=== PATIENT | male | born 1950 | race Caucasian/White ===

== ENCOUNTER 2022-04-25 12:21 | Emergency (ER) | payer OTHER, MEDICAID ==
[~2022-04-25] VITALS: Ht 170.2 cm; Wt 59.4 kg
[2022-04-25 12:23] VITALS: BP 127/91
--- NOTE | 2022-04-25 12:36 | NUR ---
PT AMB WITH SENIOR LEAD [employer] DEVELOPER TO BED 11.
--- NOTE | 2022-04-25 12:40 | NUR ---
DR. OSEGUERA EVALUATING PATIENT AT BEDSIDE.
--- NOTE | 2022-04-25 12:45 | NUR ---
71/M BIB CAREGIVER FROM [facility] C/O NOSE LAC S/P FALL TODAY. BLEEDING CONTROLLED AT THIS TIME. DENIES LOC. PMH: SEVERE INTELLECTUAL DISABILITY, HYPOTHYROID, HTN
[2022-04-25] MEDS ORDERED: LIDOCAINE 1% 500 MG/ 50 ML VIAL INJ ONE (13:45)
[2022-04-25] MEDS ORDERED: LIDOCAINE MPF 1% 5 ML ONE (13:50)
[2022-04-25] MEDS ORDERED: LIDOCAINE MPF 1% 10 MG/ML VIAL INJ ONE (13:55)
--- NOTE | 2022-04-25 14:00 | NUR ---
Patient discharged with v/s stable. Written and verbal after care instructions given and explained. Patient verbalized understanding. Ambulatory with steady gait. All questions addressed prior to discharge. Advised to follow up with PMD. PT LEFT ACCOMPANIED BY CAREGIVER
== END 2022-04-25 14:00 | disposition home or self-care (01) ==
LOC: EDSEX 12:21 → MED 12:21
DX: S01.21XA Laceration without foreign body of nose, initial encounter (principal); Z90.49 Acquired absence of other specified parts of digestive tract; W18.39XA Other fall on same level, initial encounter; Y92.009 Unspecified place in unspecified non-institutional (private) residence as the place of occurrence of the external cause; Y93.89 Activity, other specified; Y99.8 Other external cause status
CPT/HCPCS: 12011; 70160; 90471; 90715; 99283; J2001

== ENCOUNTER 2022-08-16 10:07 | Emergency (ER) | payer OTHER, MEDICAID ==
[~2022-08-16] VITALS: Ht 170.2 cm; Wt 66.7 kg
[2022-08-16 10:20] VITALS: BP 117/74
--- NOTE | 2022-08-16 10:26 | NUR ---
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 DENIES LOC, CP, SOB, N,V,D, CHANGE IN DIET, DENIES CHANGE IN BEHAVIOR. SMALL LAC W/TING BLOOD NOTED TO LT EYEBROW. NO ACUTE DISTRESS NOTED, SAFETY MAINTAINED. HX: Schiz, Hyperthyroidism, Intellectual Disability, Austistic
[2022-08-16] MEDS ORDERED: FLUORESCEIN OPTH STRIP 1 MG OP ONE (10:35)
== END 2022-08-16 10:49 | disposition home or self-care (01) ==
LOC: MED 10:07
DX: S05.32XA Ocular laceration without prolapse or loss of intraocular tissue, left eye, initial encounter (principal); I10 Essential (primary) hypertension; W18.30XA Fall on same level, unspecified, initial encounter; Y93.89 Activity, other specified; Y92.89 Other specified places as the place of occurrence of the external cause; Y99.8 Other external cause status
CPT/HCPCS: 99282